=== PATIENT | female | born 1940 | race Caucasian/White ===

== ENCOUNTER 2017-03-03 12:42 | Day surgery (SDC) | payer MEDICARE, OTHER ==
[~2017-03-03] VITALS: Ht 154.9 cm; Wt 45.5 kg
[~2017-03-03 12:42] MED LIST: ADVIL200 MG PO; AVALIDE 150-12.1 TA1 PO; BAYER CHEWABLE81 MG PO; CALCIUM 500 + D1 TAB PO; GLIMEPIRIDE2 MG PO; JANUVIA100 MG PO; K-DUR20 MEQ PO; LANOXIN125 MCG PO; LIBRIUM5 MG PO; MAGNESIUM OXID250 MG PO; METFORMIN HCL500 M1 PO; NITROSTAT0.3 MG SL; OMEPRAZOLE40 MG PO; PEPCID40 MG PO; PRAVACHOL40 MG PO; PROVENTIL HFA6.7 GM INH; TENORMIN50 MG PO; VITAMIN D31000 UNI2 PO; ZYRTEC10 MG PO
[2017-03-03 13:54] VITALS: BP 151/67; Ht 154.9 cm; Wt 45.5 kg
[2017-03-03 14:23] LABS: HEMOGLOBIN 11.3 g/dL (12-16); MCH 27.5 pg (26.0-34.0); MCHC 30.5 g/dL (31.0-37.0); MEAN PLATELET VOLUME 12.3 fL (7.4-10.4); RBC 4.11 10x6/uL (4.00-5.40); RDW 14.2 % (11.5-14.5); WBC 4.8 10x3/uL (4.8-10.8)
[2017-03-03 14:43] LABS: CALC OSMOLALITY 283 mosm/kg (275-300); CALCIUM 9.9 mg/dL (8.5-10.1); CARBON DIOXIDE 27.8 mmol/L (21.0-32.0); CHLORIDE - SERUM 103 mmol/L (98-107); CREATININE - SERUM 0.6 mg/dL (0.6-1.3); POTASSIUM - SERUM 4.9 mmol/L (3.5-5.1); SODIUM 142 mmol/L (136-145); UREA NITROGEN 13 mg/dL (7-18); eGFR NON AFRICAN AMERICAN > 90 mL/min (90-120)
[2017-03-03 14:46] LABS: GLUCOSE 123 mg/dL (74-106)
--- NOTE | 2017-03-03 15:46 | NUR ---
1530- PT TO ROOM, DROWSY AND RESPONDING TO VERBAL STIMULI. 1535- DR. LLANES AT BEDSIDE, DISCUSSING PROCEDURAL FINDINGS WITH PT AND FRIEND. VSS. WILL MONITOR. FULL LIQUIDS OFFERED.
--- NOTE | 2017-03-03 16:15 | NUR ---
1600- IV D/C'D, PT TOLERATED. CATHETER INTACT 1610- DISCHARGE INSTRUCTIONS COMPLETED, VERBAILZED UNDERSTANDING. PAPERWORK SIGNED 1615- PT DISCHARGED VIA WHEELCHAIR WITH FRIEND.
== END 2017-03-03 16:15 | disposition home or self-care (01) ==
LOC: D.OPS 12:42
PROVIDERS: Anesthesiology
DX: K21.0 Gastro-esophageal reflux disease with esophagitis (principal); K29.80 Duodenitis without bleeding; K29.50 Unspecified chronic gastritis without bleeding; Z01.812 Encounter for preprocedural laboratory examination